=== PATIENT | female | born 1975 | race Caucasian/White ===

== ENCOUNTER 2017-02-09 15:08 | Emergency (ER) | payer SELFPAY ==
[2017-02-09] MEDS ORDERED: ACETAMINOPHEN 325 MG TABLET PO ONE (15:18)
[2017-02-09] MEDS ORDERED: ACETAMINOPHEN 325 MG TABLET ONE (15:21)
--- NOTE | 2017-02-09 15:27 | ERNOTE ---
Chest Pain/Cardiac HPI Chief Complaint: Chest Pain Time Seen by Provider: 02/09/17 15:09 Source: patient Exam Limitations: no limitations Immunizations: IMMUNIZATION HX Immunizations Up to Date Yes History of Influenza Vaccine Yes Allergies/Adverse Reactions: Allergies amoxicillin trihydrate [From Augmentin] Adverse Reaction (Mild, Verified 15:16) UPSET STOMACH potassium clavulanate [From Augmentin] Adverse Reaction (Verified 02/09/17 15:16 ) UPSET STOMACH Home Medications: HOME MEDICATIONS Levonorgestrel [Mirena] 1 each IY 02/09/17 [Last Taken Unknown] Lisinopril [Prinivil] 10 mg PO DAILY #90 tablet 02/09/17 [Last Taken Unknown] Narrative: Patient started to have URI symptoms yesterday morning, has been taking over the counter medications. Prior to coming here she started to have central chest pain. The pain is aching at baseline with intermittent sharp pain, no associated symptoms. Date (Duration): 02/09/17 Time (Timing): 14:30 Timing: constant Severity/Quality: aching Location: central Chest Pain Radiation: back Activities at Onset: none Modifying Factors - Improves: Present: nothing Modifying Factors - Worsens: Present: nothing Nitro Today/Relief: no nitro taken today Aspirin Treatment Today: no aspirin today Associated Symptoms: Present: denies symptoms Prior Chest Pain/Cardiac Workup: Reports: no prior cardiac workup. Denies: prior chest pain Prior Treatment: Denies: recently seen, currently on antibiotics Review of Systems - Review of Systems Constitutional: Present: fever - up to 100. Absent: recent illness ENT: Present: nose congestion, nasal drainage, sore throat Respiratory: Present: cough - slight, dry. Absent: shortness of breath Cardiology: Present: See HPI, chest pain Gastrointestinal/Abdominal: Absent: nausea, vomiting, abdominal pain Genitourinary: Present: no symptoms reported Musculoskeletal: Absent: back pain Neurological: Absent: headache, weakness, numbness - Patient's Past Medical History Patient History - Medical: No pertinent hx Patient History - Cardiac/Respiratory: Hypertension - has been off for three months as she has no insurance Patient History - Cancer: No Hx of Cancer Patient History - Surgical Procedures: Appendectomy, Cholecystectomy Patient History - Other: None - Social History Psych History: No pertinent hx Smoking Status: Never smoker Have you smoked in the past 12 months: No Alcohol Use: rarely Drug Use: none - Immunizations Immunizations Up to Date: Yes History of Influenza Vaccine: Yes Physical Exam - Physical Exam General Appearance: Present: wd/wn, alert, no apparent distress, obese Ears, Nose, Throat: Present: nasal congestion, normal pharynx, other - TM dull, no erythema Respiratory: Present: no respiratory distress, normal breath sounds, no accessory muscle use, chest nontender, lungs clear Cardiovascular/Chest: Present: regular rate, rhythm, no murmur Gastrointestinal/Abdominal: Present: normal bowel sounds, nontender, nondistended, soft Extremity Exam: Present: no edema Neurological Exam: Present: alert, oriented, normal mood/affect Skin Exam: Present: normal color, warm/dry ED Progress - Results and Orders Patient's Lab Results:: I have reviewed the patient's lab results. - Vital Signs Patient's Vital Signs:: I have reviewed the patient's vital signs. Vital Signs: Vital Signs 02/09/17 15:10 Temperature 37.3 C Pulse Rate 95 Respiratory 16 Rate Blood Pressure 154/93 O2 Sat by Pulse 98 Oximetry - EKG EKG: NSR, unchanged from - 09/14, other - no acute changes EKG read: Interp. by me - X-Ray X-Ray #1 X-Ray: chest - vascular congestion Interpretation: Reviewed by me - Progress/Reassessment Chief Complaint: Chest Pain Progress Note-Subjective: 02/09/17 16:10 pain better after tylenol 07/15, discussed test results Departure - Departure Clinical Impression: Bronchitis Disposition: Home self-care Condition: Good Instructions: Acute Bronchitis, [id number], Form - Excuse from Work, School, or Physical Activity Referrals: Nano Morales FNP [Primary Care Provider] - Prescriptions: Lisinopril [Prinivil] 10 mg PO DAILY #90 tablet
[2017-02-09 15:32] LABS: Hematocrit 40.1 % (37.0-47.0); Hemoglobin 13.6 gm/dL (12.5-16.0); Mean Cell Volume 84.6 fl (78-100); Mean Corpuscular Hemoglobin 28.7 pg (27-31); Mean Corpuscular Hgb Conc 33.9 g/dl (32-36); Mean Platelet Volume 10.9 fl (6.0-9.5); Neutrophil # 7.1 K/mm3 (1.3-6.0); Neutrophil % 63.4 % (42-75.0); Platelet Count 199 K/mm3 (150-450); Red Blood Count 4.74 M/mm3 (4.2-5.4); Red Cell Distribution Width 13.5 % (11.5-14.0); White Blood Count 11.1 K/mm3 (4.0-10.5)
[2017-02-09 15:53] LABS: Albumin * 3.9 gm/dl (3.4-5.0); Anion Gap 15.5 mmol/L (6.8-13.8); BUN/Creatinine Ratio 15.1 (9.0-21.6); Bilirubin, Total 0.6 mg/dL (0.0-1.1); Ca. Corrected For Albumin 8.2 mg/dL (8.4-10.2); Calcium * 8.4 mg/dL (7.9-10.9); Potassium 3.5 mmol/L (3.4-4.6); Total Protein 7.2 gm/dL (6.2-8.2); Troponin I 0.022 ng/ml (0.00-0.10)
[2017-02-09 16:34] VITALS: BP 153/80
== END 2017-02-09 16:17 | disposition home or self-care (01) ==
LOC: ER 15:08
DX: J40 Bronchitis, not specified as acute or chronic (principal)